=== PATIENT | female | born 1945 | race Caucasian/White ===

== ENCOUNTER 2019-04-15 10:35 | Observation (INO) ==
--- NOTE | 2019-04-15 10:37 | Emergency Department Note ---
ED Disposition Clinical Impression: Weight loss, Chronic nausea Benign positional vertigo Qualifiers: Laterality: left Qualified Code(s): H81.12 - Benign paroxysmal vertigo, left ear Disposition: Admitted as Observation Condition on Discharge: Fair Referrals: Myriam Cordero APRN [Referring] - - Critical Care Critical Care Time: No Attestation: On , the high probability of a clinically significant, sudden or life threatenin g deterioration of the following system(s) required my full and direct attention, intervention and personal management. The time I documented below is in addition to time spent performing reported procedures but includes the following listed in this critical care notation. Medical Decision Making - Adelso Inquiry Pt receiving controlled substance: No Vital Signs: 04/15/19 10:38 04/15/19 11:36 04/15/19 12:00 Temperature 98.4 F Temperature Source Oral Pulse Rate [Right Radial] 67 66 68 Respiratory Rate 16 20 20 Blood Pressure [Right Arm] 166/82 H 169/92 H 176/95 H Blood Pressure Mean [Right Arm] 110 117 122 Blood Pressure Source [Right Arm] Automatic Cuff Automatic Cuff Blood Pressure Position [Right Arm] Supine Right Lateral Right Lateral 02 Sat by Pulse Oximetry 97 96 96 Oxygen Delivery Method Room Air Room Air Room Air 04/15/19 14:00 Temperature Temperature Source Pulse Rate [Right Radial] 66 Respiratory Rate 12 Blood Pressure [Right Arm] 186/103 H Blood Pressure Mean [Right Arm] 130 Blood Pressure Source [Right Arm] Blood Pressure Position [Right Arm] Supine 02 Sat by Pulse Oximetry 95 Oxygen Delivery Method Room Air - Lab Data Lab Results 04/15/19 10:10: WBC 8.3, RBC 3.94 L, Hgb 11.6 L, Hct 37.1, MCV 94.1, MCH 29.6, MCHC 31.4 L, RDW 13.6, Plt Count 319, MPV 8.5, Neut % (Auto) 65.9, Lymph % (Auto) 25.8, [place] % (Auto) 5.7, Eos % (Auto) 2.0, Baso % (Auto) 0.5, Neut # (Auto) 5.5, Lymph # (Auto) 2.1, [place] # (Auto) 0.5, Eos # (Auto) 0.2, Baso # (Auto) 0.0 04/15/19 10:10: Sodium 143, Potassium 4.0, Chloride 108 H, Carbon Dioxide 27, Anion Gap 12.0, BUN 16, Creatinine 0.96, Estimated Creat Clear 42, Estimated GFR 57 L, Est GFR ( Amer) 69, Glucose 104, Calcium 9.0, Total Bilirubin 0.6, AST 24, ALT 31, Alkaline Phosphatase 57, Troponin I < 0.02, Total Protein 7.2, Albumin 3.6, Globulin 3.6 H, Albumin/Globulin Ratio 1.0 L 04/15/19 10:10: TSH 1.29, Free T4 Index 3.4 L, Thyroxine (T4) 9.8, T3 Uptake 35 Result diagrams: 04/15/19 10:10 04/15/19 10:10 Orders (Tests/Meds): ED MEDICATIONS Discontinued Medications Generic Name Dose Route Start Last Admin Trade Name Freq PRN Reason Stop Dose Admin Ioversol 75 ml 04/15/19 12:59 04/15/19 13:00 Rad-Optiray 350 100ml Vial IV 04/15/19 13:00 75 ml ONCE ONE Administration Protocol Meclizine HCl 25 mg 04/15/19 12:22 04/15/19 12:28 Antivert 25mg Tablet PO 04/15/19 12:23 25 mg ONCE ONE Administration Ondansetron HCl 4 mg 04/15/19 10:50 04/15/19 11:07 Zofran 4mg/2ml Vial IV 04/15/19 10:51 4 mg ONCE ONE Administration Sodium Chloride 10 ml 04/15/19 12:59 04/15/19 13:00 Rad-Saline Flush 10ml Syringe IV 04/15/19 13:00 10 ml ONCE ONE Administration ORDERS Category Date Time Status ECG Request by /Nse Stat Y 04/15/19 10:50 Ordered - CT Data CT Scan: Abdomen, Pelvis, Chest Time Received: 14:[address] Reviewed: Yes: I have viewed the radiologist's interpretation Findings Narrative: Chest: IMPRESSION: 1. No acute finding. 2. Prior CABG with borderline cardiomegaly and mild prominence of left and right atrium. Dictated By: Jae Valero MD 04/15/19 7888 Abdo/Pelvis: IMPRESSION: 1. Thickening of the gastric antrum and of the pylorus. This may be inflammatory or neoplastic. Upper endoscopy may be of further value. 2. Bilateral renal cortical scarring with small cortical calcification of the right kidney and nonobstructing right renal stone. There is prominence of both renal pelves and proximal ureters. No definite obstructing lesions evident. 3. Diverticulosis of the colon with a moderate amount of retained colonic feces. Dictated By: Jae Valero MD 04/15/19 1314 - ECG Data Tracing #1 EKG interpreted by Joshua White MD: Rhythm: sinus Rate: 68 [place]: Left Ectopy: none Conduction: normal ST Segment Changes: none T Wave Changes: none Q Waves: V1 and V2 No evidence of acute ischemia or injury No prior EKGs available for comparison - Physician Consults Physician Consulted: Delfin Time: 14:45 Reason -: Pt condition Comment/Response: States he does not admit to any hospital. Request the patient be admitted here. If family requests transfer to [place], he normally senses patients to [facility] for [facility]. Family requests admission here. Additional Consult: Jenifer Time: 14:58 Reason -: Admission Comment/Response: Agrees to admit the patient to the hospital. We discussed the patient's clinical information, including history, exam, laboratory and radiology results and ED course. Per hospital procedure, I will write temporary bridge inpatient orders on the patient. Specific orders requested by the admitting physician: Valium 2 mg 3 times a day. First dose intravenously in the emergency department. Continue IV fluids, Antivert, Zofran. Medical Decision Narrative: Recent EGD and colonoscopy by Dr. Mac here: Colonoscopy: Impression: 1. Left-sided diverticulosis 2. Grade 1 internal hemorrhoids Plan: I would encourage a fiber bowel regimen on a long-term daily maintenance basis. (MiraLAX Citrucel every morning). The patient will not require any further preventive/screening colonoscopy. Documented By: Robert Mac MD 08/30/18 1213 EGD: Impression: 1. Mild linear reactive gastropathy Plan: I will follow up the biopsies. I do feel that the patient's abdominal pain is related to her IBS/visceral sensitivity. I would recommend dietary measures, fiber bowel regimen and additional treatment. I will obtain her CT scan of the abdomen. I would consider diagnostic colonoscopy since it has been many years. Documented By: Robert Mac MD 08/05/18 9166 11:10 AM: Omar maneuver performed. No change. 12:10 PM: No improvement in vertigo. Additional family has arrived. They are as concerned or more concerned about her 30 pound weight loss over the past 5 months. States that she is depressed. States that she says she feels like she has the flu every day with nausea and no appetite. They would like additional testing done to rule out cancers. CT scan of chest and abdomen ordered. Also thyroid panel added. 2:20 PM: Omar maneuver performed. No change. Family requests that I call primary care physician. They request the patient be admitted, do not feel she is able to go home, was unable to ambulate today. General Adult HPI - General Chief complaint: Dizziness Stated complaint: dizziness,vertigo Time Seen by Provider: 04/15/19 10:44 - History of Present Illness HPI narrative: 3-day history of vertigo when she turns her head to the left with nausea and vomiting. Denies headache, numbness or weakness of arms or legs, speech difficulty. No diplopia or loss of vision, but has blurry vision. Denies abdominal pain. No prior history of vertigo. She has had problems with nausea and weight loss for a year. She has had an upper and lower GI and no cause has been found. She sees her primary care doctor at [facility] in [place]. She has atrial fibrillation and is on Eliquis, sees Dr. Lenz in [place]. No URI symptoms or auditory symptoms. - Related Data Home Medications Medication Instructions Recorded Confirmed Apixaban [Eliquis] 5 mg PO BID 08/05/18 04/15/19 Aspirin 81 mg PO DAILY 08/05/18 04/15/19 Atorvastatin Calcium [Lipitor 10mg 5 mg PO DAILY 08/05/18 04/15/19 Tablet] Diclofenac Sodium [Diclofenac 75mg 75 mg PO DAILY 08/05/18 04/15/19 Tab] Omeprazole [Omeprazole 40mg 40 mg PO HS 08/05/18 04/15/19 Capsule] Sotalol HCl [Sotalol AF] 80 mg PO BID 08/05/18 04/15/19 Allergies Allergy/AdvReac Type Severity Reaction Status Date / Time No Known Allergies Allergy Verified 08/30/18 10:37 [facility] History - Hepatitis A Screen Attestation statement:: This patient has been screened for Hepatitis A risk factors. I have reviewed the patient's past medical history: Yes Medical History: Reports:: Atherosclerotic Heart Disease, Atrial Fibrillation, Coronary Artery Disease, Gastroesophageal Reflux Disease(GERD), Hyperlipidemia, Hypertension Denies:: Diabetes Mellitus Type 1, Diabetes Mellitus Type 2, Internal Pacemaker, Lung Disease, Seizures Comment: PATRICK Other Surgeries: Yes: Cardiac Surgery (CABGx3). No: Pacemaker ROS Obtained: Yes All systems reviewed & no additional complaints - Constitutional Constitutional: Denies fever(s) - Eyes Eyes: Denies blind spots, Reports blurry vision, Denies diplopia - ENT Ears, Nose, Mouth, and Throat: Denies abnormal hearing, Denies otalgia, Denies hearing loss, Denies nasal discharge, Denies sore throat - Cardiovascular Cardiovascular: Denies chest pain - Respiratory Respiratory: No dyspnea - Gastrointestinal Gastrointestingal: Reports: nausea, vomiting. Denies: abdominal pain, diarrhea - Neurologic Neurologic: Denies headache(s), Denies numbness, Denies weakness Physical Exam - General General appearance: alert, in no apparent distress - Head Head exam: atraumatic, normocephalic - Eye Eye exam: Present: normal appearance, PERRL, EOMI, nystagmus (On left gaze) - ENT ENT exam: Present: normal exam, normal oropharynx, TM's normal bilaterally - Neck Neck exam: Present: normal inspection, trachea midline - Chest Chest inspection: Present: normal inspection, symmetric chest wall rise - Respiratory Respiratory exam: Present: normal lung sounds bilaterally. Absent: respiratory distress - Cardiovascular Cardiovascular exam: Present: regular rate, normal rhythm, normal heart sounds - Abdominal Exam Abdominal exam: Present: soft. Absent: distention, tenderness, guarding, rebound - Extremities Exam Extremities exam: Present: normal inspection. Absent: tenderness - Neurological Exam Neurological exam: Present: alert, oriented X3, CN II-XII intact, other ([id number] normal). Absent: motor sensory deficit - Psychiatric Psychiatric exam: Present: normal affect, normal mood - Skin Skin exam: Present: warm, dry
[2019-04-15 11:15] LABS: Basophils % 0.5 % (0.1-2.0); Eosinophils # 0.2 K/mm3 (0.0-0.4); Hematocrit 37.1 % (37.0-47.0); Hemoglobin 11.6 g/dL (12.2-16.2); Lymphocytes # 2.1 K/mm3 (0.7-4.5); Lymphocytes % 25.8 % (10-50); Mean Corpuscular HGB Conc 31.4 g/dL (31.8-35.4); Mean Corpuscular Volume 94.1 fl (81-99); Mean Platelet Volume 8.5 fl (7.4-10.4); Monocytes # 0.5 K/mm3 (0.1-1.0); Monocytes % 5.7 % (1.7-9.3); Neutrophils # 5.5 K/mm3 (1.8-7.8); Neutrophils % 65.9 % (37.0-80.0); Platelet Count 319 K/mm3 (142-424); Red Blood Count 3.94 M/mm3 (4.20-5.40); Red Cell Distribution Width 13.6 % (11.5-17.5); White Blood Count 8.3 K/mm3 (4.8-10.8)
[2019-04-15 11:16] LABS: Alanine Aminotransferase 31 U/L (12-78); Albumin Level 3.6 gm/dL (3.4-5.0); Alkaline Phosphatase 57 U/L (46-116); Aspartate Amino Transferase 24 U/L (15-37); Bilirubin,Total 0.6 mg/dL (0.2-1.0); Blood Urea Nitrogen 16 mg/dL (7-18); Carbon Dioxide 27 mmol/L (21.0-32.0); Chloride 108 mmol/L (98-107); Globulin 3.6 gm/dl (1.3-3.2); Glucose 104 mg/dL (74-106); Sodium 143 mmol/L (136-145); Total Protein,Serum 7.2 gm/dL (6.4-8.2)
[2019-04-15 12:48] LABS: Free Thyroxine Index 3.4 ug/dL (5.93-13.13); Thyroid Stimulating Hormone 1.29 uIU/ml (0.358-3.740)
--- NOTE | 2019-04-15 16:39 | History & Physical Report ---
*Admission Date: 04/15/19 <Katrin Ambriz 04/15/19 16:39> *Chief complaint: Dizziness and weakness <Katrin Ambriz 04/15/19 17:09> *History of present illness: Ms. Brown is a 73-year-old female with a history of hypertension, ASHD, atrial fibrillation, coronary artery disease, GERD, and hyperlipidemia who was brought to [facility] emergency room today due to severe dizziness. She has been unable to get out of bed due to this and weakness. She denies syncopal episodes. Family also participates in history and indicates that she has lost 30 pounds within the last month. She has been unable to eat due to persistent nausea and vomiting. She has been able to drink fluids. Evaluation in the ER included CT of the head which showed nothing acute, CT of the chest which showed nothing acute and CT of the abdomen and pelvis which revealed thickening of the gastric antrum and of the pylorus. This may be inflammatory or neoplastic. Upper endoscopy may be of further value; Bilateral renal cortical scarring with small cortical calcification of the right kidney and nonobstructing right renal stone. There is prominence of both renal pelves and proximal ureters. No definite obstructing lesions evident; and Diverticulosis of the colon with a moderate amount of retained colonic feces. She was then admitted for further evaluation and treatment Patient has been followed by Dr. Cordero in [place]. She did have an EGD August 10, 2018 and had biopsies. Biopsy report is not available. She then had a colonoscopy 08/30/2018. These were both completed by Dr. Mac. <Katrin Ambriz 04/15/19 17:31> [facility] History Medical History: Reports:: Atherosclerotic Heart Disease, Atrial Fibrillation, Coronary Artery Disease, Gastroesophageal Reflux Disease(GERD), Hyperlipidemia, Hypertension Denies:: Cancer, Chronic Obstructive Pulmonary Disease (COPD), Cerebrovascular Accident, Diabetes Mellitus Type 1, Diabetes Mellitus Type 2, Gastrointestinal Bleed, Internal Pacemaker, Lung Disease, Myocardial Infarction, Seizures <Katrin Ambriz 04/15/19 17:18> *Have you ever received a pneumonia vaccine?: Yes <Katrin Ambriz 04/15/19 16:39> *Have you received a flu vaccine this season?: Yes <Katrin Ambriz 04/15/19 16:39> Other Surgeries: Yes: Cardiac Surgery (CABGx3), Cholecystectomy, Hysterectomy- Total. No: Pacemaker <Shakira Ambrizhy 04/15/19 17:18> - *Social History Educational Level: Attended High School <Katrin Ambriz 04/15/19 16:39> Smoking Status: Never smoker <Katrin Ambriz 04/15/19 16:39> Alcohol Intake: never <Katrin Ambriz 04/15/19 16:39> *Occupational Status:: retired <Shakira Ambrizhy 04/15/19 16:39> Housing: house <Shakira Ambrizhy 04/15/19 16:39> Household Members: spouse <Shakira Ambrizhy 04/15/19 16:39> *Travel in the last 8 weeks: None <Shakira Ambrizhy 04/15/19 16:39> - Psychiatric History Expresses thoughts of harming self/others: None <Shakira Ambrizhy 04/15/19 16:39> Suicide Plan Description: No Plan <Shakira Ambrizhy 04/15/19 16:39> Family Hx:: Cancer, no Coronary Artery Disease, no Diabetes <Shakira Ambrizhy 04/15/19 17:18> Review of Systems - Constitutional Reports chills, Reports lack of energy, Reports weight loss <AmbrizKatrin 04/15/19 17:18> - ENT Denies ear pain, Denies sore throat <AmbrizKatrin 04/15/19 17:18> - *Cardiovascular Reports shortness of breath (A little short of breath this a.m.), Reports leg swelling (Sometimes), Denies chest pain, Denies irregular heart rhythm <AmbrizKatrin 04/15/19 17:18> - *Respiratory Reports shortness of breath, Denies chest congestion, Denies cough <AmbrizKatrin 04/15/19 17:18> - *Gastrointestinal Reports abdominal pain (Epigastrium and mid abdomen), Reports constipation (Bowels do not move every day.), Reports heartburn, Reports nausea, Reports vomiting, Denies coffee ground vomit, Denies vomiting blood, Denies bright, red blood in stools <AmbrizKatrin 04/15/19 17:18> Comments: Patient has only been able to take a few bites of food with each meal. She states she immediately feels nauseated and like she will vomit. <Katrin Ambriz - 04/15/19 17:18> - *Genitourinary Denies difficulty urinating <Katrin Ambriz - 04/15/19 17:31> - *Musculoskeletal Reports abnormal walking (Unstable on her feet due to dizziness) <Shakira Ambrizhy - 04/15/19 17:31> - *Neurologic Reports unsteadiness, Reports dizziness, Denies abnormal hearing, Denies abnormal speech, Denies behavioral changes, Denies seizure-like activity, Denies frequent falls, Denies headache(s), Denies numbness, Denies weakness <Shakira Ambrizhy - 04/15/19 17:31> Meds Home Medications Medication Instructions Recorded Confirmed Type Apixaban [Eliquis] 5 mg PO BID 08/05/18 04/15/19 History Aspirin 81 mg PO DAILY 08/05/18 04/15/19 History Atorvastatin Calcium [Lipitor 10mg 80 mg PO DAILY 08/05/18 04/15/19 History Tablet] Diclofenac Sodium [Diclofenac 75mg 75 mg PO DAILY 08/05/18 04/15/19 History Tab] Omeprazole [Omeprazole 40mg 40 mg PO BID 08/05/18 04/15/19 History Capsule] Sotalol HCl [Sotalol AF] 80 mg PO BID 08/05/18 04/15/19 History Cholecalciferol (Vitamin D3) 2,000 unit PO 04/15/19 04/15/19 History [Vitamin D3] Lisinopril [Lisinopril 5mg Tablet] 5 mg PO DAILY 04/15/19 04/15/19 History Mv-Mn/Folic Acid/Vit [id number] 1 each PO 04/15/19 04/15/19 History [Alive Once Daily Women 50 Plus] Temazepam [Restoril 30mg capsule] 1 tab PO 04/15/19 04/15/19 History sulfaSALAzine [Sulfasalazine] 500 mg PO BID 04/15/19 04/15/19 History <Nick Burgess - 04/16/19 08:24> Allergies Allergy/AdvReac Type Severity Reaction Status Date / Time No Known Allergies Allergy Verified 08/30/18 10:37 <Virden,Nick - 04/16/19 08:24> Exam Vital signs and Labs for Last 24 Hours: Temp Pulse Resp BP Pulse Ox 98.0 F 67 18 151/63 H 98 04/16/19 08:00 04/16/19 08:00 04/16/19 08:00 04/16/19 08:00 04/16/19 08:00 Laboratory Results - last 24 hr 04/15/19 10:10: WBC 8.3, RBC 3.94 L, Hgb 11.6 L, Hct 37.1, MCV 94.1, MCH 29.6, MCHC 31.4 L, RDW 13.6, Plt Count 319, MPV 8.5, Neut % (Auto) 65.9, Lymph % (Auto) 25.8, [place] % (Auto) 5.7, Eos % (Auto) 2.0, Baso % (Auto) 0.5, Neut # (Auto) 5.5, Lymph # (Auto) 2.1, [place] # (Auto) 0.5, Eos # (Auto) 0.2, Baso # (Auto) 0.0 04/15/19 10:10: Sodium 143, Potassium 4.0, Chloride 108 H, Carbon Dioxide 27, Anion Gap 12.0, BUN 16, Creatinine 0.96, Estimated Creat Clear 42, Estimated GFR 57 L, Est GFR ( Amer) 69, Glucose 104, Calcium 9.0, Total Bilirubin 0.6, AST 24, ALT 31, Alkaline Phosphatase 57, Troponin I < 0.02, Total Protein 7.2, Albumin 3.6, Globulin 3.6 H, Albumin/Globulin Ratio 1.0 L 04/15/19 10:10: TSH 1.29, Free T4 Index 3.4 L, Thyroxine (T4) 9.8, T3 Uptake 35 04/15/19 10:10: Phosphorus 3.7, Magnesium 1.9 04/16/19 06:03: Sodium 143, Potassium 3.7, Chloride 110 H, Carbon Dioxide 26, Anion Gap 10.7, BUN 15, Creatinine 0.88, Estimated Creat Clear 43, Estimated GFR 63, Est GFR ( Amer) 76, Glucose 94, Calcium 8.4 L 04/16/19 06:22: WBC 7.2, RBC 3.71 L, Hgb 10.9 L, Hct 34.8 L, MCV 93.9, MCH 29.3, MCHC 31.2 L, RDW 13.8, Plt Count 307, MPV 8.4, Neut % (Auto) 43.6, Lymph % (Auto) 46.1, [place] % (Auto) 6.3, Eos % (Auto) 3.3, Baso % (Auto) 0.7, Neut # (Auto) 3.1, Lymph # (Auto) 3.3, [place] # (Auto) 0.5, Eos # (Auto) 0.2, Baso # (Auto) 0.1 <Nick Burgess - 04/16/19 08:24> Temp Pulse Resp BP Pulse Ox 98.1 F 67 20 169/85 H 96 04/15/19 16:20 04/15/19 16:20 04/15/19 16:20 04/15/19 16:20 04/15/19 15:15 Laboratory Results - last 24 hr 04/15/19 10:10: WBC 8.3, RBC 3.94 L, Hgb 11.6 L, Hct 37.1, MCV 94.1, MCH 29.6, MCHC 31.4 L, RDW 13.6, Plt Count 319, MPV 8.5, Neut % (Auto) 65.9, Lymph % (Auto) 25.8, [place] % (Auto) 5.7, Eos % (Auto) 2.0, Baso % (Auto) 0.5, Neut # (Auto) 5.5, Lymph # (Auto) 2.1, [place] # (Auto) 0.5, Eos # (Auto) 0.2, Baso # (Auto) 0.0 04/15/19 10:10: Sodium 143, Potassium 4.0, Chloride 108 H, Carbon Dioxide 27, Anion Gap 12.0, BUN 16, Creatinine 0.96, Estimated Creat Clear 42, Estimated GFR 57 L, Est GFR ( Amer) 69, Glucose 104, Calcium 9.0, Total Bilirubin 0.6, AST 24, ALT 31, Alkaline Phosphatase 57, Troponin I < 0.02, Total Protein 7.2, Albumin 3.6, Globulin 3.6 H, Albumin/Globulin Ratio 1.0 L 04/15/19 10:10: TSH 1.29, Free T4 Index 3.4 L, Thyroxine (T4) 9.8, T3 Uptake 35 <Katrin Ambriz - 04/15/19 16:39> I & O for Last 24 hours: Intake & Output 04/13/19 04/14/19 04/15/19 04/16/19 23:59 23:59 23:59 23:59 Intake Total 240 / 240 480 / 480 Output Total 550 / 550 Balance -310 / -310 480 / 480 Weight 115 lb 9 oz 121 lb <Nick Burgess - 04/16/19 08:24> Intake & Output 04/13/19 04/14/19 04/15/19 04/16/19 11:59 11:59 11:59 11:59 Weight 120 lb 115 lb 9 oz <Katrin Ambriz Peg 04/15/19 16:39> Radiology Reports for the Last 24 Hours: 04/15/2019 CT of the head IMPRESSION: No acute intracranial findings CT of the abdomen pelvis 04/15/2019 IMPRESSION: 1. Thickening of the gastric antrum and of the pylorus. This may be inflammatory or neoplastic. Upper endoscopy may be of further value. 2. Bilateral renal cortical scarring with small cortical calcification of the right kidney and nonobstructing right renal stone. There is prominence of both renal pelves and proximal ureters. No definite obstructing lesions evident. 3. Diverticulosis of the colon with a moderate amount of retained colonic feces. 04/15/2019 CT of the chest MPRESSION: 1. No acute finding. 2. Prior CABG with borderline cardiomegaly and mild prominence of left and right atrium. <KatinaKatrin - 04/15/19 16:39> - Constitutional no acute distress <AmbrizKatrin 04/15/19 17:31> Comments: Appears comfortable lying in the bed. Conversant <KatinaKatrin 04/15/19 17:31> - *Routine HEENT Exam Head: Present: normocephalic, atraumatic <Katrin Ambriz 04/15/19 17:31> Eye: Present: EOMI, PERRL, normal accommodation. Absent: conjunctival icterus, scleral injection, nystagmus <Katrin Ambriz 04/15/19 17:31> ENT: Present: mucous membranes moist, oropharynx clear, nares patent. Absent: mucous membranes dry <Katrin Ambriz 04/15/19 17:31> - *Routine Neck Exam Present: supple, full ROM, carotid bruit (Right). Absent: lymphadenopathy, thyromegaly <Shakira Ambrizhy 04/15/19 17:31> - *Routine Respiratory Exam Present: CTA bilaterally (Anteriorly and posteriorly) <[facility] 04/15/19 17:31> - *Routine Cardiovascular Exam Present: RRR <Ambriz,[facility] 04/15/19 17:31> - *Routine Abdominal Exam Present: soft, normoactive bowel sounds, tenderness (In epigastrium and mid abdomen). Absent: distended, guarding <Ambriz,Katrin - 04/15/19 17:31> - *Routine Extremities Exam Absent: edema, calf tenderness <[facility] 04/15/19 17:31> - *Routine Neurological Exam Present: alert, oriented X3, CN II-XII intact, moving all extremities, normal speech. Absent: altered mental status, nystagmus <Ambriz,Katrin 04/15/19 17:31> Did not get patient out of bed to test [place] <Ambriz,Katrin 04/15/19 17:31> Assessment and Plan (1) Hypertension Current visit: Yes Status: Acute Category: Medical Code(s): I10 - Essential (primary) hypertension (2) Carotid bruit Current visit: Yes Status: Acute Category: Medical Code(s): R09.89 - Other specified symptoms and signs involving the circulatory and respiratory systems (3) ASHD (arteriosclerotic heart disease) Current visit: Yes Status: Chronic Category: Medical Code(s): I25.10 - Atherosclerotic heart disease of [place] coronary artery without angina pectoris (4) GERD (gastroesophageal reflux disease) Current visit: Yes Status: Chronic Category: Medical Code(s): K21.9 - Gastro-esophageal reflux disease without esophagitis (5) Atrial fibrillation Current visit: Yes Status: Chronic Category: Medical Code(s): I48.91 - Unspecified atrial fibrillation (6) Benign positional vertigo Current visit: Yes Status: Acute Qualifiers: Laterality: left Qualified Code(s): H81.12 - Benign paroxysmal vertigo, left ear Category: Medical Code(s): H81.10 - Benign paroxysmal vertigo, unspecified ear (7) Chronic nausea Current visit: Yes Status: Acute Category: Medical Code(s): R11.0 - Nausea (8) Weight loss Current visit: Yes Status: Acute Category: Medical Code(s): R63.4 - Abnormal weight loss <Nick Burgess - 04/16/19 08:24> (1) Hypertension Current visit: Yes Status: Acute Category: Medical Code(s): I10 - Essential (primary) hypertension (2) Carotid bruit Current visit: Yes Status: Acute Category: Medical Code(s): R09.89 - Other specified symptoms and signs involving the circulatory and respiratory systems (3) ASHD (arteriosclerotic heart disease) Current visit: Yes Status: Chronic Category: Medical Code(s): I25.10 - Atherosclerotic heart disease of [place] coronary artery without angina pectoris (4) GERD (gastroesophageal reflux disease) Current visit: Yes Status: Chronic Category: Medical Code(s): K21.9 - Gastro-esophageal reflux disease without esophagitis (5) Atrial fibrillation Current visit: Yes Status: Chronic Category: Medical Code(s): I48.91 - Unspecified atrial fibrillation (6) Benign positional vertigo Current visit: Yes Status: Acute Qualifiers: Laterality: left Qualified Code(s): H81.12 - Benign paroxysmal vertigo, left ear Category: Medical Code(s): H81.10 - Benign paroxysmal vertigo, unspecified ear (7) Chronic nausea Current visit: Yes Status: Acute Category: Medical Code(s): R11.0 - Nausea (8) Weight loss Current visit: Yes Status: Acute Category: Medical Code(s): R63.4 - Abnormal weight loss <AmbrizKatrin - 04/15/19 17:21> - Assessment and plan all Dx Assessment and Plan for all problems:: Saw patient on day of admission, agree with above note. <Nick Burgess - 04/16/19 08:24> Patient has been admitted to acute care with IV fluids. We will do carotid ultrasound. 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 She is also been placed on a PPI and home meds. She has Phenergan ordered as needed. <Katrin Ambriz - 04/15/19 17:31>
[2019-04-15 17:12] LABS: Phosphorous 3.7 mg/dL (2.4-4.9)
[2019-04-16 07:07] LABS: Anion Gap 10.7 mEq/L (5-15); Calcium 8.4 mg/dL (8.5-10.1)
[2019-04-16 07:24] LABS: Basophils # 0.1 K/mm3 (0-0.2); Basophils % 0.7 % (0.1-2.0); Eosinophils # 0.2 K/mm3 (0.0-0.4); Eosinophils % 3.3 % (0.1-12.0); Hematocrit 34.8 % (37.0-47.0); Hemoglobin 10.9 g/dL (12.2-16.2); Lymphocytes # 3.3 K/mm3 (0.7-4.5); Lymphocytes % 46.1 % (10-50); Mean Corpuscular HGB Conc 31.2 g/dL (31.8-35.4); Mean Corpuscular Volume 93.9 fl (81-99); Mean Platelet Volume 8.4 fl (7.4-10.4); Monocytes # 0.5 K/mm3 (0.1-1.0); Monocytes % 6.3 % (1.7-9.3); Neutrophils # 3.1 K/mm3 (1.8-7.8); Neutrophils % 43.6 % (37.0-80.0); Platelet Count 307 K/mm3 (142-424); Red Blood Count 3.71 M/mm3 (4.20-5.40); Red Cell Distribution Width 13.8 % (11.5-17.5); White Blood Count 7.2 K/mm3 (4.8-10.8)
--- NOTE | 2019-04-16 07:31 | Pharmacy Consult Notes ---
[facility] Pharmacy VTE Monitoring - Patient Demographics Admission date: 04/15/19 Report Date: 04/16/19 Time: 07:30 Allergies/Adverse Reactions: Patient Allergies No Known Allergies Allergy (Verified 08/30/18 10:37) Height: 1.52 m Weight: 54.885 kg Patient Problems: Current Active Problems (Updated 04/15/19 @ 17:32 by Katrin Ambriz APRN) Benign positional vertigo (Acute) Weight loss (Acute) Chronic nausea (Acute) Hypertension (Acute) Carotid bruit (Acute) ASHD (arteriosclerotic heart disease) (Chronic) GERD (gastroesophageal reflux disease) (Chronic) Atrial fibrillation (Chronic) - VTE Risk Labs: VTE Related Lab Results Hgb 10.9 g/dL (12.2-16.2) L 04/16/19 06:22 Hct 34.8 % (37.0-47.0) L 04/16/19 06:22 Plt Count 307 K/mm3 (142-424) 04/16/19 06:22 BUN 15 mg/dL (7-18) 04/16/19 06:03 Creatinine 0.88 mg/dL (0.55-1.02) 04/16/19 06:03 Estimated Creat Clear 43 mL/min (50-200) 04/16/19 06:03 Was VTE Risk Assessment Performed: Yes VTE Score: 6 VTE Risk Level: Moderate Risk Clinical Trial Participant: No - Prophylaxis VTE Prophylaxis Ordered?: Yes Types of VTE Prophylaxis: TEDS Knee High, Pharmacological Location of Applied Device: Bilateral Lower Extremeties Pharmacologic Type: Other (ELIQUIS)
--- NOTE | 2019-04-16 08:15 | Progress Note ---
<Katrin Ambriz - Last Filed: 04/16/19 08:11> Internal Medicine - PN: Subj *Date: 04/16/19 *Time: 08:11 Interval history: Patient feels better today. Minimal dizziness. Even with sitting up in the bed. She was able to eat a little bit of breakfast this morning without nausea. She has had no vomiting. Bowels have not moved. She did sleep well last night. She denies chest pain shortness of breath. Exam Vital signs and Labs for Last 24 Hours: Temp Pulse Resp BP Pulse Ox 98.2 F 60 18 128/60 96 04/16/19 04:00 04/16/19 04:00 04/16/19 04:00 04/16/19 04:00 04/16/19 04:00 Laboratory Results - last 24 hr 04/15/19 10:10: WBC 8.3, RBC 3.94 L, Hgb 11.6 L, Hct 37.1, MCV 94.1, MCH 29.6, MCHC 31.4 L, RDW 13.6, Plt Count 319, MPV 8.5, Neut % (Auto) 65.9, Lymph % (Auto) 25.8, [place] % (Auto) 5.7, Eos % (Auto) 2.0, Baso % (Auto) 0.5, Neut # (Auto) 5.5, Lymph # (Auto) 2.1, Durham # (Auto) 0.5, Eos # (Auto) 0.2, Baso # (Auto) 0.0 04/15/19 10:10: Sodium 143, Potassium 4.0, Chloride 108 H, Carbon Dioxide 27, Anion Gap 12.0, BUN 16, Creatinine 0.96, Estimated Creat Clear 42, Estimated GFR 57 L, Est GFR ( Amer) 69, Glucose 104, Calcium 9.0, Total Bilirubin 0.6, AST 24, ALT 31, Alkaline Phosphatase 57, Troponin I < 0.02, Total Protein 7.2, Albumin 3.6, Globulin 3.6 H, Albumin/Globulin Ratio 1.0 L 04/15/19 10:10: TSH 1.29, Free T4 Index 3.4 L, Thyroxine (T4) 9.8, T3 Uptake 35 04/15/19 10:10: Phosphorus 3.7, Magnesium 1.9 04/16/19 06:03: Sodium 143, Potassium 3.7, Chloride 110 H, Carbon Dioxide 26, Anion Gap 10.7, BUN 15, Creatinine 0.88, Estimated Creat Clear 43, Estimated GFR 63, Est GFR ( Amer) 76, Glucose 94, Calcium 8.4 L 04/16/19 06:22: WBC 7.2, RBC 3.71 L, Hgb 10.9 L, Hct 34.8 L, MCV 93.9, MCH 29.3, MCHC 31.2 L, RDW 13.8, Plt Count 307, MPV 8.4, Neut % (Auto) 43.6, Lymph % (Auto) 46.1, Durham % (Auto) 6.3, Eos % (Auto) 3.3, Baso % (Auto) 0.7, Neut # (Auto) 3.1, Lymph # (Auto) 3.3, Durham # (Auto) 0.5, Eos # (Auto) 0.2, Baso # (Auto) 0.1 I & O for Last 24 hours: Intake & Output 04/13/19 04/14/19 04/15/19 04/16/19 11:59 11:59 11:59 11:59 Intake Total 240 / 240 Output Total 550 / 550 Balance -310 / -310 Weight 120 lb 121 lb - Constitutional no acute distress, thin Comments: Sitting up in the bed and appears comfortable. - *Routine Respiratory Exam Present: CTA bilaterally (Anteriorly and posteriorly) - *Routine Cardiovascular Exam Present: RRR - *Routine Abdominal Exam Present: soft, normoactive bowel sounds, tenderness (Describes soreness to palpation in lower quadrants. Also in epigastrium) - *Routine Extremities Exam Absent: edema, calf tenderness (MIN house on) Comments: Monitor showing sinus rhythm in the 60s. - *Routine Neurological Exam Present: alert, oriented X3 Assessment and Plan (1) Hypertension Current visit: Yes Status: Acute Category: Medical Code(s): I10 - Essential (primary) hypertension (2) Carotid bruit Current visit: Yes Status: Acute Category: Medical Code(s): R09.89 - Other specified symptoms and signs involving the circulatory and respiratory systems (3) ASHD (arteriosclerotic heart disease) Current visit: Yes Status: Chronic Category: Medical Code(s): I25.10 - Atherosclerotic heart disease of grayling coronary artery without angina pectoris (4) GERD (gastroesophageal reflux disease) Current visit: Yes Status: Chronic Category: Medical Code(s): K21.9 - Gastro-esophageal reflux disease without esophagitis (5) Atrial fibrillation Current visit: Yes Status: Chronic Category: Medical Code(s): I48.91 - Unspecified atrial fibrillation (6) Benign positional vertigo Current visit: Yes Status: Acute Qualifiers: Laterality: left Qualified Code(s): H81.12 - Benign paroxysmal vertigo, left ear Category: Medical Code(s): H81.10 - Benign paroxysmal vertigo, unspecified ear (7) Chronic nausea Current visit: Yes Status: Acute Category: Medical Code(s): R11.0 - Nausea (8) Weight loss Current visit: Yes Status: Acute Category: Medical Code(s): R63.4 - Abnormal weight loss - Assessment and plan all Dx Assessment and Plan for all problems:: Will have a carotid ultrasound today. Continue with current care. <Nick Burgess - Last Filed: 04/16/19 08:25> Internal Medicine - PN: Subj *Date: 04/16/19 *Time: 08:25 Exam Vital signs and Labs for Last 24 Hours: Temp Pulse Resp BP Pulse Ox 98.0 F 67 18 151/63 H 98 04/16/19 08:00 04/16/19 08:00 04/16/19 08:00 04/16/19 08:00 04/16/19 08:00 Laboratory Results - last 24 hr 04/15/19 10:10: WBC 8.3, RBC 3.94 L, Hgb 11.6 L, Hct 37.1, MCV 94.1, MCH 29.6, MCHC 31.4 L, RDW 13.6, Plt Count 319, MPV 8.5, Neut % (Auto) 65.9, Lymph % (Auto) 25.8, Durham % (Auto) 5.7, Eos % (Auto) 2.0, Baso % (Auto) 0.5, Neut # (Auto) 5.5, Lymph # (Auto) 2.1, Durham # (Auto) 0.5, Eos # (Auto) 0.2, Baso # (Auto) 0.0 04/15/19 10:10: Sodium 143, Potassium 4.0, Chloride 108 H, Carbon Dioxide 27, Anion Gap 12.0, BUN 16, Creatinine 0.96, Estimated Creat Clear 42, Estimated GFR 57 L, Est GFR ( Amer) 69, Glucose 104, Calcium 9.0, Total Bilirubin 0.6, AST 24, ALT 31, Alkaline Phosphatase 57, Troponin I < 0.02, Total Protein 7.2, Albumin 3.6, Globulin 3.6 H, Albumin/Globulin Ratio 1.0 L 04/15/19 10:10: TSH 1.29, Free T4 Index 3.4 L, Thyroxine (T4) 9.8, T3 Uptake 35 04/15/19 10:10: Phosphorus 3.7, Magnesium 1.9 04/16/19 06:03: Sodium 143, Potassium 3.7, Chloride 110 H, Carbon Dioxide 26, Anion Gap 10.7, BUN 15, Creatinine 0.88, Estimated Creat Clear 43, Estimated GFR 63, Est GFR ( Amer) 76, Glucose 94, Calcium 8.4 L 04/16/19 06:22: WBC 7.2, RBC 3.71 L, Hgb 10.9 L, Hct 34.8 L, MCV 93.9, MCH 29.3, MCHC 31.2 L, RDW 13.8, Plt Count 307, MPV 8.4, Neut % (Auto) 43.6, Lymph % (Auto) 46.1, Durham % (Auto) 6.3, Eos % (Auto) 3.3, Baso % (Auto) 0.7, Neut # (Auto) 3.1, Lymph # (Auto) 3.3, Durham # (Auto) 0.5, Eos # (Auto) 0.2, Baso # (Auto) 0.1 I & O for Last 24 hours: Intake & Output 04/13/19 04/14/19 04/15/19 04/16/19 23:59 23:59 23:59 23:59 Intake Total 240 / 240 480 / 480 Output Total 550 / 550 Balance -310 / -310 480 / 480 Weight 115 lb 9 oz 121 lb Assessment and Plan (1) Hypertension Current visit: Yes Status: Acute Category: Medical Code(s): I10 - Essential (primary) hypertension (2) Carotid bruit Current visit: Yes Status: Acute Category: Medical Code(s): R09.89 - Other specified symptoms and signs involving the circulatory and respiratory systems (3) ASHD (arteriosclerotic heart disease) Current visit: Yes Status: Chronic Category: Medical Code(s): I25.10 - Atherosclerotic heart disease of grayling coronary artery without angina pectoris (4) GERD (gastroesophageal reflux disease) Current visit: Yes Status: Chronic Category: Medical Code(s): K21.9 - G alejandra-esophageal reflux disease without esophagitis (5) Atrial fibrillation Current visit: Yes Status: Chronic Category: Medical Code(s): I48.91 - Unspecified atrial fibrillation (6) Benign positional vertigo Current visit: Yes Status: Acute Qualifiers: Laterality: left Qualified Code(s): H81.12 - Benign paroxysmal vertigo, left ear Category: Medical Code(s): H81.10 - Benign paroxysmal vertigo, unspecified ear (7) Chronic nausea Current visit: Yes Status: Acute Category: Medical Code(s): R11.0 - Nausea (8) Weight loss Current visit: Yes Status: Acute Category: Medical Code(s): R63.4 - Abnormal weight loss - Assessment and plan all Dx Assessment and Plan for all problems:: Saw patient, agree with above note. She has improved with Diazepam treatment. Saline lock, possible discharge later today.
--- NOTE | 2019-04-16 15:16 | Carotid Imaging Report ---
"Cerebrovascular Exam Indications: 780.4 Vertigo. IMPRESSIONS 1. The bilateral vertebral arteries are patent with normal antegrade flow. 2. Study suggests less than 20% stenosis involving the right internal carotid artery. 3. Study suggests less than 20% stenosis involving the left internal carotid artery. History: Risk factors: Hypertension. Hyperlipidemia. Carotid duplex study. Complete study and Doppler flow study including spectral analysis, color and pham scale imaging. Height: Height: 149.9cm. Height: 59in. Weight: Weight: 54.9kg. Weight: 120.7lb. Body mass index: BMI: 24.4kg/m^2. Body surface area: BSA: 1.52m^2. Location: Bedside. Patient status: Inpatient. Tables: Arterial flow: + +--------+---------+ |Location |V sys |V ed | + +--------+---------+ |Right CCA - proximal|72cm/s |14.7cm/s | + +--------+---------+ |Right CCA - distal |88.2cm/s|23.7cm/s | + +--------+---------+ |Right ECA |105cm/s |9.4cm/s | + +--------+---------+ |Right ICA - proximal|-65cm/s |-15.9cm/s| + +--------+---------+ |Right ICA - mid |86.7cm/s|19.3cm/s | + +--------+---------+ |Right ICA - distal |88.8cm/s|23.6cm/s | + +--------+---------+ |Right vertebral |47.1cm/s|13.4cm/s | + +--------+---------+ |Left CCA - proximal |82.2cm/s|17cm/s | + +--------+---------+ |Left CCA - distal |78.7cm/s|15.3cm/s | + +--------+---------+ |Left ECA |109cm/s |7.1cm/s | + +--------+---------+ |Left ICA - proximal |66.7cm/s|19cm/s | + +--------+---------+ |Left ICA - mid |87.8cm/s|-25.3cm/s| + +--------+---------+ |Left ICA - distal |86cm/s |22.3cm/s | + +--------+---------+ |Left vertebral |30.6cm/s|12.6cm/s | + +--------+---------+ Velocity ratios: + + + + + + | |Right, V sys|Right, V ed|Left, V sys|Left, V ed| + + + + + + |Max ICA/dist CCA|1.01 |1 |1.12 |1.46 | + + + + + + (Report amended ) Electronically signed by: Jae Valero [id number]"
--- NOTE | 2019-04-17 20:50 | Discharge Summary ---
General - General Admission date:: 04/15/19 Discharge date: 04/16/19 HPI HPI: Ms. Prince is a 73-year-old female with a history of hypertension, ASHD, atrial fibrillation, coronary artery disease, GERD, and hyperlipidemia who was brought to [facility] emergency room today due to severe dizziness. She has been unable to get out of bed due to this and weakness. She denies syncopal episodes. Family also participates in history and indicates that she has lost 30 pounds within the last month. She has been unable to eat due to persistent nausea and vomiting. She has been able to drink fluids. Evaluation in the ER included CT of the head which showed nothing acute, CT of the chest which showed nothing acute and CT of the abdomen and pelvis which revealed thickening of the gastric antrum and of the pylorus. This may be inflam matory or neoplastic. Upper endoscopy may be of further value; Bilateral renal cortical scarring with small cortical calcification of the right kidney and nonobstructing right renal stone. There is prominence of both renal pelves and proximal ureters. No definite obstructing lesions evident; and Diverticulosis of the colon with a moderate amount of retained colonic feces. She was then admitted for further evaluation and treatment Patient has been followed by Dr. Cordero in [place]. She did have an EGD August 10, 2018 and had biopsies. Biopsy report is not available. She then had a colonoscopy 08/30/2018. These were both completed by Dr. Mac. Hospital Course Hospital Course: The patient was admitted and started on IV fluids. A carotid ultrasound was ordered and she was placed on a dough sheeter. She was also placed on a PPI and her home medications. She had Phenergan ordered as needed. She was also started on diazepam. The patient's carotid Doppler showed less than 20% stenosis involving bilateral carotid arteries. She did improve throughout her stay and had very minimal dizziness by 04/16/2019. She was able to eat without n ausea and had no further vomiting. She rested well and her labs were all stable other than mild anemia. She was stable to be discharged home with Valium 3 times daily as needed. Her temazepam was discontinued. She will follow-up with her primary care physician. Objective Vital signs: Temp Pulse Resp BP Pulse Ox 98.8 F 70 18 143/72 H 97 04/16/19 16:00 04/16/19 16:00 04/16/19 16:00 04/16/19 16:00 04/16/19 16:00 Narrative: - Constitutional no acute distress Comments: Appears comfortable lying in the bed. Conversant - *Routine HEENT Exam Head: Present: normocephalic, atraumatic Eye: Present: EOMI, PERRL, normal accommodation. Absent: conjunctival icterus, scleral injection, nystagmus ENT: Present: mucous membranes moist, oropharynx clear, nares patent. Absent: mucous membranes dry - *Routine Neck Exam Present: supple, full ROM, carotid bruit (Right). Absent: lymphadenopathy, thyromegaly - *Routine Respiratory Exam Present: CTA bilaterally (Anteriorly and posteriorly) - *Routine Cardiovascular Exam Present: RRR - *Routine Abdominal Exam Present: soft, normoactive bowel sounds, tenderness (In epigastrium and mid abdomen). Absent: distended, guarding - *Routine Extremities Exam Absent: edema, calf tenderness - *Routine Neurological Exam Present: alert, oriented X3, CN II-XII intact, moving all extremities, normal speech. Absent: altered mental status, nystagmus Did not get patient out of bed to test Romberg DS: Diagnosis - Discharge Diagnosis (1) Hypertension Status: Acute (2) Carotid bruit Status: Acute (3) ASHD (arteriosclerotic heart disease) Status: Chronic (4) GERD (gastroesophageal reflux disease) Status: Chronic (5) Atrial fibrillation Status: Chronic (6) Benign positional vertigo Status: Acute (7) Chronic nausea Status: Acute (8) Weight loss Status: Acute Discharge Plan - Patient Discharge Instructions ACTIVITY: Continue current activity DIET: continue same diet Patient Instructions: Benign Paroxysmal Positional Vertigo, DI for Nausea -- Adult - Follow up Plan Follow up with: Colt Lenz [Primary Care Provider] - 2 weeks Disposition: Home, Self-Skilled Nursing Medications: Home Medications Medication Instructions Recorded Confirmed Type Apixaban [Eliquis] 5 mg PO BID 08/05/18 04/15/19 History Aspirin 81 mg PO DAILY 08/05/18 04/15/19 History Atorvastatin Calcium [Lipitor 10mg 80 mg PO HS 08/05/18 04/16/19 History Tablet] Diclofenac Sodium [Diclofenac 75mg 75 mg PO BIDWM 08/05/18 04/16/19 History Tab] Omeprazole [Omeprazole 40mg 40 mg PO DAILY 08/05/18 04/16/19 History Capsule] Sotalol HCl [Sotalol AF] 80 mg PO BID 08/05/18 04/15/19 History Cholecalciferol (Vitamin D3) 2,000 unit PO HS 04/15/19 04/15/19 History [Vitamin D3] Lisinopril [Lisinopril 5mg Tablet] 5 mg PO DAILY 04/15/19 04/15/19 History Mv-Mn/Folic Acid/Vit [id number] 1 each PO HS 04/15/19 04/15/19 History [Alive Once Daily Women 50 Plus] sulfaSALAzine [Sulfasalazine] 500 mg PO BID 04/15/19 04/15/19 History Latanoprost [Xalatan 0.005% Ophth 1 drp EYE-BOTH HS 04/16/19 04/16/19 History Soln 2.5mL] diazePAM [Valium] 5 mg PO TIDP PRN #30 tab 04/16/19 Rx Prescriptions/Medication Reconciliation: New diazePAM [Valium] 5 mg PO TIDP PRN #30 tab PRN Reason: Dizziness Continued Omeprazole [Omeprazole 40mg Capsule] 40 mg PO DAILY Atorvastatin Calcium [Lipitor 10mg Tablet] 80 mg PO HS Sotalol HCl [Sotalol AF] 80 mg PO BID Diclofenac Sodium [Diclofenac 75mg Tab] 75 mg PO BIDWM Apixaban [Eliquis] 5 mg PO BID Lisinopril [Lisinopril 5mg Tablet] 5 mg PO DAILY sulfaSALAzine [Sulfasalazine] 500 mg PO BID Mv-Mn/Folic Acid/Vit [id number] [Alive Once Daily Women 50 Plus] 1 each PO HS Latanoprost [Xalatan 0.005% Ophth Soln 2.5mL] 1 drp EYE-BOTH HS Aspirin 81 mg PO DAILY Cholecalciferol (Vitamin D3) [Vitamin D3] 2,000 unit PO HS Discontinued Temazepam [Restoril 30mg capsule] 1 tab PO HS
== END 2019-04-16 18:56 | disposition home or self-care (01) ==
LOC: 2ND 10:35 → ER 10:35 → 2ND 16:22
PROVIDERS: ADMIT Family Medicine; ATTEND Family Medicine
DX: R63.4 Abnormal weight loss; K57.30 Diverticulosis of large intestine without perforation or abscess without bleeding; I10 Essential (primary) hypertension; Z79.899 Other long term (current) drug therapy; N20.0 Calculus of kidney; Z79.01 Long term (current) use of anticoagulants; H81.12 Benign paroxysmal vertigo, left ear; E78.5 Hyperlipidemia, unspecified; I25.10 Atherosclerotic heart disease of native coronary artery without angina pectoris; I48.91 Unspecified atrial fibrillation; K21.9 Gastro-esophageal reflux disease without esophagitis; Z79.82 Long term (current) use of aspirin; R09.89 Other specified symptoms and signs involving the circulatory and respiratory systems
CPT/HCPCS: 70450; 71260; 74177; 80048; 80053; 83735; 84100; 84436; 84443; 84479; 84484; 85025; 93005; 93880; 96374; 96375; 99284; G0378; J2405; Q9967

== ENCOUNTER → 2019-06-02 14:34 | Outpatient (POV) | payer MEDICARE, OTHER, SELFPAY | PROVIDERS: PCP Family Medicine; Visit Provider Nurse Practitioner Family | DX: Z00.00 Encounter for general adult medical examination without abnormal findings (principal) ==

== ENCOUNTER → 2019-07-28 11:03 | Outpatient (POV) | payer MEDICARE, OTHER, SELFPAY | PROVIDERS: PCP General Practice; Visit Provider Nurse Practitioner Family | DX: Z00.00 Encounter for general adult medical examination without abnormal findings (principal) ==

== ENCOUNTER → 2019-11-03 11:21 | Outpatient (POV) | payer MEDICARE, OTHER, SELFPAY | PROVIDERS: Visit Provider Nurse Practitioner Family | DX: Z00.00 Encounter for general adult medical examination without abnormal findings (principal) ==

== ENCOUNTER → 2019-11-06 09:24 | Outpatient (CLI) | payer MEDICARE, OTHER, SELFPAY ==
--- NOTE | 2019-11-06 09:30 | NM_ITS ---
CLINICAL INDICATION: CONSTIPATION,DYSPEPSIA,WEIGHT LOSS COMPARISON: No exams were available for comparison TECHNIQUE: Routine exam was performed with time activity curve after 0.54 millicuries technetium 99 M sulfur colloid administration with 2 whole eggs, 2 pieces of toast, 1 glass of water FINDINGS: Gastric emptying half time is taken to be 76 minutes which is within the normal range normal gastric emptying half time taken to be 30-90 minutes. IMPRESSION: Gastric emptying within normal limits. Dictated by: Johnnie Soares 11/06/2019 13:05 Electronically signed by Johnnie Soares in [place] 11/06/2019 13:05
--- NOTE | 2019-11-06 10:19 | HMH.ITSHM ---
Current Home Medications as stated by this patient Becky Prince or communications representative. [] lisinopril sotalol asa omeprazole lipitor
== END ==
PROVIDERS: Visit Provider Nurse Practitioner Family
DX: K59.00 Constipation, unspecified (principal); K30 Functional dyspepsia; R63.4 Abnormal weight loss
CPT/HCPCS: 78264; A9541

== ENCOUNTER → 2019-11-25 08:33 | Outpatient (CLI) | payer MEDICARE, OTHER, SELFPAY ==
--- NOTE | 2019-11-25 08:37 | FL_ITS ---
PROCEDURE: FL SMALL BOWEL FOLLOW THROUGH CLINICAL INDICATION: DYSPEPSIA, NAUSEA,WGT LOSS Nausea and vomiting with weight loss and abdominal pain COMPARISON: ABDPELW CT abdomen pelvis w con from 04/15/2019 FINDINGS: [employer] exam shows surgical clips in the right upper quadrant. There is a mild amount of retained colonic feces. There are numerous phleboliths in the abdomen and pelvis. The small bowel has an unremarkable appearance. No obstructing lesions. No mucosal abnormalities masses or other significant anomalies. Spot views of the terminal ileum are unremarkable. IMPRESSION: Unremarkable small bowel series Dictated by: Jae Valero MD 11/25/2019 12:12 Electronically signed by Jae Valero MD in [place] 11/25/2019 12:12
== END ==
PROVIDERS: PCP General Practice; Visit Provider Nurse Practitioner Family
DX: K30 Functional dyspepsia (principal); R11.0 Nausea; R63.4 Abnormal weight loss
CPT/HCPCS: 74250

== ENCOUNTER → 2020-05-03 08:48 | Outpatient (POV) | payer MEDICARE, OTHER, SELFPAY | PROVIDERS: PCP General Practice; Visit Provider Nurse Practitioner Family | DX: Z00.00 Encounter for general adult medical examination without abnormal findings (principal) ==

== ENCOUNTER → 2020-11-01 14:00 | Outpatient (POV) | payer MEDICARE, OTHER, SELFPAY | PROVIDERS: Visit Provider Nurse Practitioner Family | DX: Z00.00 Encounter for general adult medical examination without abnormal findings (principal) ==

== ENCOUNTER → 2020-11-05 08:49 | Outpatient (CLI) | payer MEDICARE, OTHER, SELFPAY ==
--- NOTE | 2020-11-05 08:54 | CT_ITS ---
PROCEDURE: CT ABDOMEN PELVIS W CON CLINICAL INDICATION: WEIGHT LOSS 30lb weight loss over 6 months Some nausea Tenderness in umbilical area COMPARISON: CT ABDPELW CT abdomen pelvis w con from 04/15/2019 DX,RF FL SMALL BOWEL FOLLOW THROUGH from 11/25/2019 TECHNIQUE: IV Contrast: 75ML Isovue 370 Oral Contrast None Axial images obtained with sagittal and coronal reformats. All CT scans at the facility use one or more dose reduction, viz: automated exposure control, ma/kV adjustment per patient size (including targeted exams where dose is matched to indication, i.e. head), or iterative reconstruction technique. FINDINGS: LOWER THORAX: There are mild fibrotic changes in the left lung base. 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 Epicardial pacer wires present. Prior TVR and MVR. ABDOMEN & PELVIS: There has been a prior cholecystectomy. The liver, spleen, adrenal glands and pancreas have an unremarkable appearance.. There is bilateral renal cortical scarring more extensive on the right. There is a 10 mm calcific density along the anterior aspect of the right kidney which is stable. No intestinal obstruction or free air. No evidence of appendicitis. There is a moderate amount of retained colonic feces in the rectosigmoid region. There is extensive colonic diverticulosis but no evidence of diverticulitis. There has been a prior hysterectomy. There are degenerative changes in the lumbar spine. There is a sclerotic focus in the left symphysis pubis unchanged. A sclerotic focus also noted within the left ilium anteriorly measuring 19 mm unchanged. IMPRESSION: 1. No acute finding. 2. Mild amount of retained colonic feces with extensive colonic diverticulosis but no evidence of diverticulitis. There is a moderate amount of retained colonic feces in the rectosigmoid region. 3. Scarring of the right kidney with 10 mm cortical calcific density of the right kidney unchanged 4. Sclerotic focus of the left ilium and left symphysis pubis unchanged possibly due to bone islands Dictated by: Jae Valero MD 11/08/2020 15:46 Jae Valero MD in [place] 11/08/2020 15:46
== END ==
PROVIDERS: PCP General Practice; Visit Provider General Practice
DX: R63.4 Abnormal weight loss (principal)
CPT/HCPCS: 74177; Q9967

== ENCOUNTER → 2022-01-09 16:04 | Outpatient (CLI) | payer MEDICARE, OTHER, SELFPAY ==
--- NOTE | 2022-01-09 16:11 | XR_ITS ---
FINAL REPORT CLINICAL HISTORY: SHOULDER PAIN and thoracic pain FINDINGS: LEFT SHOULDER Three views demonstrate no acute fracture or dislocation. There are mild degenerative changes of the acromioclavicular joint. The visualized bony structures are well aligned. No soft tissue abnormality is seen. IMPRESSION: Mild degenerative change of the acromioclavicular joint. Reviewed, Interpreted and Dictated by Gonsalo Smith III, MD Transcribed by Omaira Cook Authenticated by Gonsalo Smith III, MD on 01/09/2022 04:45:49 PM [facility]
--- NOTE | 2022-01-09 16:14 | XR_ITS ---
FINAL REPORT CLINICAL HISTORY: SHOULDER PAIN and thoracic pain FINDINGS: THORACIC SPINE 2 views were obtained. There is no acute fracture. There is no malalignment. There are mild and moderate degenerative changes with osteophytes. There are postoperative changes in the thorax and upper abdomen. IMPRESSION: Mild moderate degenerative change. Reviewed, Interpreted and Dictated by Gonsalo Smith III, MD Transcribed by Omaira Cook Authenticated by Gonsalo Smith III, MD on 01/09/2022 04:45:46 PM [facility]
== END ==
PROVIDERS: PCP Family Medicine; Visit Provider Family Medicine
DX: M25.512 Pain in left shoulder (principal); M54.6 Pain in thoracic spine; M54.2 Cervicalgia
CPT/HCPCS: 72070; 73030

== ENCOUNTER → 2022-08-08 14:09 | Outpatient (CLI) | payer MEDICARE, OTHER, SELFPAY ==
--- NOTE | 2022-08-08 14:13 | MM_ITS ---
PROCEDURE INFORMATION: Exam: MG Bilateral Diagnostic Breast Tomosynthesis Exam date and time: 08/08/2022 2:14 PM Age: 77 years old Clinical indication: Left breast pain; Left breast enlarged and painful TECHNIQUE: Imaging protocol: Bilateral Diagnostic tomosynthesis and 2D mammography including computer-aided detection (CAD) when performed. Unilateral or bilateral exam. COMPARISON: 1. MG MAMMO SCREENING DIGITAL TOMOSYNTHESIS BILATERAL W CAD 11/03/2019 1:17 PM 2. MG MAMMO DIAGNOSTIC DIGITAL TOMOSYNTHESIS RIGHT W CAD 09/23/2018 1:52 PM FINDINGS: MAMMOGRAPHY: The breasts are heterogeneously dense, which may obscure small masses. There is no stellate mass, architectural distortion or suspicious microcalcifications in either breast to suggest malignancy. Bilateral skin thickening and breast edema is present, left side greater than right. No underlying mass lesion or axillary adenopathy is identified. IMPRESSION: Bilateral breast edema, left side greater than right. The finding may be a reflection of congestive heart failure or other fluid overloaded state. Clinical correlation is strongly needed. Bilateral breast ultrasound is nevertheless recommended to assess for any underlying breast mass not seen on mammography. ASSESSMENT: BI-RADS Category 0: Incomplete- Need Additional Imaging Evaluation and/or Prior Mammograms for Comparison
== END ==
PROVIDERS: PCP Family Medicine; Visit Provider Family Medicine
DX: N63.22 Unspecified lump in the left breast, upper inner quadrant (principal)
CPT/HCPCS: 77062; 77066; G0279

== ENCOUNTER → 2022-09-04 14:18 | Outpatient (CLI) | payer MEDICARE, OTHER, SELFPAY ==
--- NOTE | 2022-09-04 14:24 | US_ITS ---
PROCEDURE INFORMATION: Exam: US Right Breast, Complete Exam date and time: 09/04/2022 2:55 PM Age: 77 years old Clinical indication: Recall on the basis of screening mammogram 08/08/2022 for sonographic evaluation of bilateral breast edema. TECHNIQUE: Imaging protocol: Complete ultrasound of all four quadrants of the Right breast and the retroareolar regions, including ultrasound of the axilla when performed. COMPARISON: MG MM DIG MAMM BI DX W/CAD 08/08/2022 2:14 PM FINDINGS: Breast: Right sonography, all 4 quadrants, retroareolar and axilla suggest diffuse bilateral haziness of the Bruno's ligaments compatible with the mammographic appearance of edema. There may be mild skin thickening as well. At 2 o'clock 3 cm from the nipple, benign-appearing cyst measuring 0.6 x 0.2 x 0.5 cm. Sonographically unremarkable right axillary lymph node. IMPRESSION: Diffuse mild nonspecific breast edema and minimal benign-appearing cystic change on the right. Patient will be recalled for left sonography. ASSESSMENT: BI-RADS Category 0: Incomplete- Need Additional Imaging Evaluation and/or Prior Mammograms for Comparison
--- NOTE | 2022-09-04 14:24 | US_ITS ---
PROCEDURE INFORMATION: Exam: US Left Breast, Complete US Right Breast, Complete Exam date and time: 09/04/2022 3:24 PM Age: 77 years old Clinical indication: Abnormal findings TECHNIQUE: Imaging protocol: Complete ultrasound of all four quadrants of the Left breast and the retroareolar regions, including ultrasound of the axilla when performed. Complete ultrasound of all four quadrants of the Right breast and the retroareolar regions, including ultrasound of the axilla when performed. COMPARISON: MG MM DIG MAMM BI DX W/CAD 08/08/2022 2:14 PM FINDINGS: Breast: Sonographic images of both breasts including the retroareolar region, all 4 quadrants and the axilla do not demonstrate any solid or cystic masses with the exception of an incidental right 2 o'clock axis 0.5 cm cyst. No architectural distortion or acoustical shadowing. Diffuse skin thickening and subcutaneous breast edema is noted throughout both breasts, left side greater than right. No axillary adenopathy. IMPRESSION: Diffuse breast edema bilaterally without adenopathy. The finding is likely due to a fluid overloaded state. Short-term mammographic follow-up following potential diuretic therapy is recommended. A 2 week follow-up bilateral diagnostic mammogram is recommended ASSESSMENT: BI-RADS Category 3: Probably benign
== END ==
PROVIDERS: PCP Family Medicine; Visit Provider Family Medicine
DX: R92.8 Other abnormal and inconclusive findings on diagnostic imaging of breast (principal)
CPT/HCPCS: 76641